=== PATIENT | male | born 1950 | race Caucasian/White ===

== ENCOUNTER 2021-01-24 19:29 | Emergency (ER) | payer MEDICARE ==
[~2021-01-24] VITALS: Ht 165.1 cm; Wt 65.8 kg
[2021-01-24 19:35] VITALS: BP_SYST 114
--- NOTE | 2021-01-24 21:20 | NUR ---
Patient to ER bed 4 to gown for evaluation. Side rails up. Report given to Reza MELO.
--- NOTE | 2021-01-24 21:50 | NUR ---
JAZZY SATURATED NICKY, SURGERY TODAY FOR CANCER REMOVAL.
--- NOTE | 2021-01-24 22:30 | NUR ---
NO INCREASE IN BLEEDING OBSERVER, NICKY RMOVED, SITE CLEAR, NO BLEEDING OBSERVED
--- NOTE | 2021-01-24 22:50 | NUR ---
DR. FAROOQ AT BEDSIDE FOR EVALUATION.
--- NOTE | 2021-01-24 22:55 | NUR ---
DRSG CHANGE, CIRCULATION AND SENSATION INTACT
[2021-01-24 23:07] VITALS: BP_SYST 109
--- NOTE | 2021-01-25 00:02 | NUR ---
Patient given written and verbal discharge instructions and verbalizes understanding. DR. CAPRI RODRIGUEZ MD discussed with patient the results and treatment provided. Patient in stable condition. ID arm band removed. Patient educated on pain management and to follow up with PMD. Pain Scale 0/10. Opportunity for questions provided and answered. Medication side effect fact sheet provided.
== END 2021-01-24 23:07 | disposition home or self-care (01) ==
LOC: SED 19:29
DX: L76.22 Postprocedural hemorrhage of skin and subcutaneous tissue following other procedure (principal)
CPT/HCPCS: 99281